=== PATIENT | male | born 1990 | race Caucasian/White ===

== ENCOUNTER → 2016-12-26 | Outpatient (REF) | payer OTHER ==
[2016-12-26 16:17] LABS: % NORMAL FORMS 9 % (>=4); IMMOTILITY 51 %; NON PROGRESSIVE MOTILITY (c) 10 %; PROGRESSIVE MOTILITY (a) 39 % (>=32); SPERM# 348.3 M/Ejac (>=39); TOTAL MOTILITY 49 % (>=40)
[2016-12-26 16:18] LABS: TOTAL FUNCTIONAL 28.1 M/Ejac.
== END ==
LOC: M LAB REF 15:58
PROVIDERS: ATTEND Obstetrics & Gynecology
DX: N46.9 Male infertility, unspecified (principal)